=== PATIENT | female | born 1975 | race Caucasian/White ===

== ENCOUNTER 2018-03-30 19:21 | Emergency (ER) | payer BC ==
[~2018-03-30] VITALS: Ht 167.6 cm; Wt 84.1 kg
[~2018-03-30 19:21] MED LIST: ANTIVERT12.5 MG PO; AUGMENTIN875TAB OR; AUGMENTINES600 PO; CEPHALEXIN500 M1 PO; ESTRACE1 MG OR; FLEXERIL10 MG PO; FLEXERIL5 M1 PO; KEFLEX500 MG PO; LISINOPRIL10 MG PO; LISINOPRIL5 MG PO; MEDDOSEPAK PO; NAPROSYN500 MG PO; NAPROXEN500 MG PO; ROBITUSSIN AC10 ML PO; TRAMADOL HCL50 MG PO; TUBERSOL5 MG/0.1 M ID
[2018-03-30] MEDS ORDERED: AMITRIPTYLIN25 MG PO (19:45)
[2018-03-30] MEDS ORDERED: TOPAMAX50 M1 PO (19:46)
[2018-03-30] MEDS ORDERED: LEVOTHYROXIN100 MCG PO (19:46)
[2018-03-30] MEDS ORDERED: VOLTAREN - GENE75 MG PO (20:45)
[2018-03-30] MEDS ORDERED: TRAMADOL HCL50 MG PO (20:45)
[2018-03-30 21:28] VITALS: BP 132/79
== END 2018-03-30 21:29 | disposition home or self-care (01) | DRG 563 ==
LOC: ED 19:21
DX: S93.602A Unspecified sprain of left foot, initial encounter (principal); I10 Essential (primary) hypertension; E03.9 Hypothyroidism, unspecified; W01.0XXA Fall on same level from slipping, tripping and stumbling without subsequent striking against object, initial encounter; Y93.89 Activity, other specified; Y92.009 Unspecified place in unspecified non-institutional (private) residence as the place of occurrence of the external cause

== ENCOUNTER 2020-02-20 14:24 | Emergency (ER) | payer BC ==
[~2020-02-20] VITALS: Ht 167.6 cm; Wt 94.5 kg
[~2020-02-20 14:24] MED LIST changes: +AMITRIPTYLIN25 MG PO; +LEVOTHYROXIN100 MCG PO; +TOPAMAX50 M1 PO; +VOLTAREN - GENE75 MG PO
[2020-02-20] MEDS ORDERED: PROBIOTIC ACIDO1 CA1 PO (15:54)
[2020-02-20] MEDS ORDERED: AMOX/K CLAV875 M1 PO (15:54)
[2020-02-20 16:03] VITALS: BP 138/88
== END 2020-02-20 16:10 | disposition home or self-care (01) | DRG 605 ==
LOC: ED 14:24
PROC: 0HQBXZZ Repair Right Upper Arm Skin, External Approach (ICD-10-PCS; principal; 2020-02-20)
DX: S41.151A Open bite of right upper arm, initial encounter (principal); I10 Essential (primary) hypertension; E03.9 Hypothyroidism, unspecified; W54.0XXA Bitten by dog, initial encounter; Y92.009 Unspecified place in unspecified non-institutional (private) residence as the place of occurrence of the external cause

== ENCOUNTER 2024-04-02 17:39 | Observation (INO) | payer BC ==
[~2024-04-02] VITALS: Ht 167.6 cm; Wt 89.6 kg
[2024-04-02] VITALS (9 sets, daily range): BP systolic 122–156; BP diastolic 60–78
[~2024-04-02 17:39] MED LIST changes: +AMOX/K CLAV875 M1 PO; +LOPRESSOR25 M1 PO; +PROBIOTIC ACIDO1 CA1 PO; +PROTONIX40 M2 PO; +UBRELVY100 MG PO
--- NOTE | 2024-04-02 17:50 | NUR ---
PT TO ROOM WITH STEADY GAIT
[2024-04-02] MEDS ORDERED: MORPHINE SULFATE 4 MG/ML VIAL IV ONE ×2 (18:05→19:25)
[2024-04-02] MEDS ORDERED: ONDANSETRON HCl 4 MG/2 ML SDV IV ONE (18:05)
[2024-04-02] MEDS ORDERED: SODIUM CHLORIDE 0.9% 1,000 ML IV ONE (18:05)
[2024-04-02 18:16] LABS: BASO% 0.4 % (0-3); EOS% 1.9 % (0-8); HEMATOCRIT 38.1 % (37.0-47.0); HEMOGLOBIN 12.1 g/dl (12.0-16.0); IMMATURE GRANULOCYTES 0.1 % (0.0-5.0); MEAN CELL VOLUME 90.5 fL CALC (80.0-100.0); MEAN CORPUSCULAR HGB 28.7 pG CALC (26.0-32.0); MEAN CORPUSCULAR HGB CONC 31.8 g/dL CAL (32.0-36.0); MONO% 6.9 % (2-13); NEUT# 6.58 thou/uL (2.00-7.15); NEUT% 68.7 % (42-76); RED BLOOD COUNT 4.21 mill/uL (4.20-5.60); RED CELL DISTRI WIDTH 12.4 % (11.5-15.5)
--- NOTE | 2024-04-02 18:16 | NUR ---
Pt medicated at this time. Awaiting lab and imaging results.
[2024-04-02 18:28] LABS: ALBUMIN 3.8 g/dL (3.2-5.0); BILIRUBIN, TOTAL 0.3 mg/dL (0.02-1.3); CREATININE 0.9 mg/dL (0.5-1.0); POTASSIUM 3.9 mmol/l (3.5-5.1); TOTAL PROTEIN 7.2 g/dL (6.3-8.2)
--- NOTE | 2024-04-02 18:50 | NUR ---
RECIEVED REPORT FROM ABIGAIL MAGAÑA.
--- NOTE | 2024-04-02 19:20 | NUR ---
PT UPDATED ON POC, AWAITING FOR RESULTS FOR URINE AND CT SCANS AT THIS TIME. PT STATES SHE IS HAVING PAIN AND HAD MILD RELIEF MANNY THE PAIN MEDICATIONS RECIEVED FROM PREVIOUS NURSE. MD NOTIFIED OF PT PAIN.
[2024-04-02 19:22] LABS: URINE BILIRUBIN - DIPSTICK Negative (NEGATIVE); URINE BLOOD DIPSTICK Moderate (NEGATIVE); URINE COLOR Light yellow; URINE GLUCOSE - DIPSTICK Negative (NEGATIVE); URINE KETONE Negative (NEGATIVE); URINE LEUK ESTERASE Small (NEGATIVE); URINE NITRITE - DIPSTICK Negative (Negative); URINE PH 6.5 (4.5-8.0); URINE PROTEIN - DIPSTICK Negative (NEG-TRACE); URINE UROBILINOGEN - DIPSTICK 0.2 E.U./dL (0.2)
[2024-04-02 19:30] LABS: URINE BACTERIA FEW hpf; URINE RBC 0-2 RBC/hpf (0-5)
[2024-04-02 19:31] LABS: URINE SQUAMOUS EPITHELIAL CELL FEW EPI/hpf (0-FEW)
--- NOTE | 2024-04-02 19:32 | NUR ---
PT MEDICATED PER MD ORDERS. PT VOICES SHE FEELS MODERATE RELIF SHORTY AFTER MEDICATION. PT HAS CALLLIGHT WITHIN REACH, FAMILY AT BEDSIDE.
--- NOTE | 2024-04-02 20:28 | NUR ---
MD AT BEDSIDE TO DISCUSS PLAN FOR TRANSFER.
--- NOTE | 2024-04-02 20:53 | NUR ---
PT VOICES SHE PREFFERS TO BE TRANSFERRED TO [facility] TO CONTINUE CARE WITH HER THAT HAS BEEN TREATING HER FOR HER DIAGNOSIS. PT INFORMED ABOUT FAILED ACCEPTANCE DUE TO FACILITY BEING AT MAX CAPACITY. PT REQUESTS TO TALK TO . NOTIFIED OF PT CONCERNS.
--- NOTE | 2024-04-02 21:23 | NUR ---
PT ABX COMPLETED AT THIS TIME. PT AWAITNG FOR ADMISSION TO [facility] AT THIS TIME. PT VOICES UNDERSTADNING WITH NO FURTHER QUESTIONS.
[2024-04-02] MEDS ORDERED: KETOROLAC TROMETHAMINE 30 MG/ML SDV IV PRN (21:30)
[2024-04-02] MEDS ORDERED: ACETAMINOPHEN 325 MG/TAB PO PRN (21:30)
[2024-04-02] MEDS ORDERED: MORPHINE SULFATE 4 MG/ML VIAL IV PRN (22:00)
[2024-04-02] MEDS ORDERED: MORPHINE SULFATE 4 MG/ML VIAL IV SCH ×2 (22:00→23:00)
[2024-04-02] MEDS ORDERED: ONDANSETRON HCl 4 MG/2 ML SDV IV PRN (22:00)
[2024-04-02] MEDS ORDERED: SODIUM CHLORIDE 0.9% 1,000 ML IV PRN (22:00)
[2024-04-02] MEDS ORDERED: MAGNESIUM HYDROXIDE 30 ML UDC PO PRN (22:00)
--- NOTE | 2024-04-02 23:12 | NUR ---
PT C/O PAIN AT THIS TIME. PT MEDICATED FOR PAIN PER MD ORDERS.
--- NOTE | 2024-04-03 00:43 | NUR ---
PATIENT ARRIVED VIA WC ACCOMPAINED BY ER NURSE, GÓMEZ CHATTERJEE. ASSESSMENT COMPLETED. PATIENT ALERT AND ORIENTED X 4. C/O L FLANK PAIN OF A 5, BUT DECLINES PAIN RELIEF MEASURES, INCLUDING REPOSITIONING, AT THIS TIME. LUNGS CLEAR TO ASCULTATION. BREATHING EVEN AND UNLABORED ON ROOM AIR. PATIENT ORIENTED TO ROOM AND CALL ARELLANO SYSTEM. VSS. WILL CONTINUE WITH PLAN OF CARE. DURING ASSESSMENT PATIENT BEGAN TO FEEL NAUSEOUS, 100 mL OF YELLOW EMESIS NOTED IN EMESIS BAG. PATIENT DENIES VOMITING IN ER. PATIENT STATES SHE "FEELS BETTER", MEDICATED WITH ZOFRAN.
--- NOTE | 2024-04-03 00:43 | NUR ---
CALL TO [facility] REGARDING MORPHINE CLARIFICATION
[2024-04-03] MEDS ORDERED: MORPHINE SULFATE 4 MG/ML VIAL IV PRN (00:50)
--- NOTE | 2024-04-03 01:27 | NUR ---
CALLED ICU GAVE PT REPORT.
[2024-04-03 01:30] VITALS: BP 137/77
--- NOTE | 2024-04-03 01:40 | NUR ---
PT TRANSPORTED TO ICU AT THIS TIME. NURSE AT BEDSIDE.
[2024-04-03 01:49] VITALS: BP 107/48
[2024-04-03] MEDS ORDERED: LOPRESSOR 550 MG/TAB PO (02:54)
[2024-04-03] MEDS ORDERED: LEVOTHYROXIN150 MC1 PO (02:56)
[2024-04-03] MEDS ORDERED: AMITRIPTYLINE100 M1 PO (02:57)
[2024-04-03 04:00] VITALS: BP 110/63
--- NOTE | 2024-04-03 04:00 | NUR ---
PATIENT APPEARS TO BE RESTING WITH EYES CLOSED. NO APPARENT DISTRESS NOTED. WILL CONTINUE WITH PLAN OF CARE.
[2024-04-03 05:57] LABS: HEMATOCRIT 33.7 % (37.0-47.0); HEMOGLOBIN 10.8 g/dl (12.0-16.0); MEAN CELL VOLUME 91.3 fL CALC (80.0-100.0); MEAN CORPUSCULAR HGB 29.3 pG CALC (26.0-32.0); RED BLOOD COUNT 3.69 mill/uL (4.20-5.60); RED CELL DISTRI WIDTH 12.4 % (11.5-15.5)
[2024-04-03 06:18] LABS: BILIRUBIN, TOTAL 0.3 mg/dL (0.02-1.3); CREATININE 0.7 mg/dL (0.5-1.0); POTASSIUM 3.8 mmol/l (3.5-5.1)
--- NOTE | 2024-04-03 07:17 | NUR ---
PATIENT ALERT X4 NO C/O PAIN . PATIENT RESPERATION EVEN AND CLEAR ON ROOM AIR. LUNG CLEAR AND ACTIVE BOWAL SOUNDS . STRONG EVEN PETAL PULSE. IV INTACT NS RUNNING AT 100ML/HR . ,
--- NOTE | 2024-04-03 07:21 | NUR ---
DR ABRAHAM AT BEDSIDE DISCUSSING PLAN OF CARE WITH PT AT THIS TIME.
[2024-04-03 08:00] VITALS: BP 122/61
--- NOTE | 2024-04-03 08:32 | NUR ---
DR GIRARD AT BEDSIDE DISCUSSING PLAN OF CARE WITH PT AT THIS TIME.
[2024-04-03] MEDS ORDERED: TRAMADOL HYDROC50 M1 PO (10:41)
[2024-04-03] MEDS ORDERED: KEFLEX500 MG PO (10:41)
--- NOTE | 2024-04-03 11:40 | NUR ---
REVIEWED DISCHARGE INSTRUCTIONS WITH PT, ANSWERED/REVIEWED PT QUESTIONS. PT REPORTS UNSERSTANDING OF INSTRUCTIONS.
--- NOTE | 2024-04-03 11:44 | NUR ---
PT LEFT THE UNIT VIA STAFF WHEELCHAIR TRANSPORT WITH BELONGINGS IN HAND.
[2024-04-03] MEDS ORDERED: ENOXAPARIN SODIUM 40 MG/0.4 ML SYR SC SCH (21:00)
--- NOTE | 2024-04-06 10:44 | NUR ---
Discharge follow up call completed 04/06/24. Patient states she is doing well since discharge. Patient is taking prescribed medication as directed. Patient has an appointment with her PCP and her oncologist in [place]. No needs or concerns verbalized at this time.
== END 2024-04-03 11:35 | disposition home or self-care (01) | DRG 392 ==
LOC: ED 17:39 → ED-I 20:57 → ED 21:39 → ICU 21:40 → MS2 21:40 → ICU 04-03 00:12
PROVIDERS: Family Medicine; Nurse Practitioner Family; ADMIT Internal Medicine; ATTEND Internal Medicine
DX: R10.9 Unspecified abdominal pain (principal); C64.2 Malignant neoplasm of left kidney, except renal pelvis; I10 Essential (primary) hypertension; E03.9 Hypothyroidism, unspecified; Z96.0 Presence of urogenital implants; Z90.5 Acquired absence of kidney; Z91.190 Patient's noncompliance with other medical treatment and regimen due to financial hardship
CPT/HCPCS: G0378; J0696; J2405; Q9967